=== PATIENT | female | born 1970 | race Caucasian/White ===

== ENCOUNTER 2020-01-29 07:54 | Emergency (ER) | payer OTHER, SELFPAY ==
[2020-01-29 08:07] VITALS: BP 131/77; BP 146/96; PULSE 88; PULSE 94; RESP 18; TEMP 36.8; O2SAT 100; O2SAT 98; BMI 40.2
--- NOTE | 2020-01-29 08:26 | PC.NURSE ---
Pt brought to hospital by ems. reports having hand leg and facial numbness. been ongoing for the last 2 years. provider at bedside
--- NOTE | 2020-01-29 08:33 | ED_ITS ---
HPI - General Adult General Chief complaint: General Medical Stated complaint: hands/feet numbness Time Seen by Provider: 01/29/20 08:16 Source: patient Mode of arrival: EMS Limitations: no limitations History of Present Illness HPI narrative: patient's history of diabetes peripheral neuropathy for last 2 years was seen her primary care doctor and was at [facility] yesterday with the whole workup was done which was negative according to the patient patient was referred to neurologist but she has not seen urologist here came here as she could not sleep last night increased anxiety and numbness in both hands and legs patient denies any pain Onset (ago): year(s) ( 2) Related Data Previous Rx's Medication Instructions Recorded gabapentin [Neurontin] 100 mg PO TID #30 cap 01/29/20 Allergies Allergy/AdvReac Type Severity Reaction Status Date / Time No Known Allergies Allergy Verified 01/29/20 08:37 Review of Systems Review of Systems: REVIEW OF SYSTEMS: Pertinent positives and negatives are stated above in the history. GEN: no fevers, chills, fatigue HEENT: no nasal congestion, sore throat, ear pain NEURO: no headache, dizziness, focal weakness PULM: no cough, shortness of breath CV: no chest pain, palpitations, LE edema ABD: no abdominal pain, nausea, vomiting, diarrhea : no dysuria, urgency, frequency SKIN: no rash ROS otherwise negative x 10 PMFSH Past Medical History Medical History Arthritis Diabetes mellitus type 1 Hypertension Social History Social History Alcohol intake: never Smoking Status: Never smoker Use of substances other than those prescribed or required for medical reasons: No Advance Directives: No Advance Directives Information Provided: No Physical Exam Vital Signs: Vital Signs: Last Vital Signs Temp 98.2 F 01/29/20 08:07 Pulse 94 01/29/20 08:07 Resp 18 01/29/20 08:07 BP 131/77 01/29/20 08:07 Pulse Ox 98 01/29/20 08:07 Body Mass Index 40.2 Appearance: Alert. Oriented X3. No acute distress. obese walking with walker Eyes: Pupils equal, round and reactive to light. ENT: Pharynx normal. Neck: Normal inspection. Neck supple. CVS: Normal heart rate and rhythm. Pulses normal. Respiratory: No respiratory distress. Breath sounds normal. Abdomen: Soft and nontender. Skin: Skin warm and dry. Normal skin color. Normal skin turgor. Extremities: No lower extremity edema. Good range of movement Neuro: Oriented X 3. No motor deficit. decreased sensation to light touch and pinprick in both feet and hand. Reflexes are normal. Course Course Course Narrative: Patient with peripheral neuropathy for last 2 years not on any medication for it likely from diabetes. Will start her on gabapentin advised to follow with neurologist patient had detailed workup done yesterday at [facility] which was negative for any acute metabolic reason and patient was advised to schedule with neurologist Medical Decision Making Lab Data Labs: Lab Results 01/29/20 Range/Units 08:36 POC Glucose 108 (60-115) mg/dL Discharge Plan Discharge Clinical Impression: Peripheral neuropathy Qualifiers: Peripheral neuropathy type: polyneuropathy, unspecified Qualified Code(s): G62.9 - Polyneuropathy, unspecified Patient Disposition: Home, Self-Care Instructions: Diabetic Peripheral Neuropathy (ED) Additional Instructions: your neuropathy is likely from diabetes. Continue your medications and start taking gabapentin for symptomatic treatment and follow-up with your neurologist as scheduled Prescriptions: New gabapentin [Neurontin] 100 mg capsule 100 mg PO TID Qty: 30 RF: 0 Print Language: Vietnamese
[2020-01-29 08:40] LABS: Glucose, Whole Blood 108 mg/dL (60-115)
--- NOTE | 2020-01-29 08:56 | PC.NURSE ---
pt refused medication aware
== END 2020-01-29 09:06 | disposition home or self-care (01) ==
PROVIDERS: Emergency Provider Internal Medicine; PCP Physician Assistant Medical
DX: G62.9 Polyneuropathy, unspecified (principal); Z79.899 Other long term (current) drug therapy
CPT/HCPCS: 82947; 99283

== ENCOUNTER 2020-02-22 20:19 | Emergency (ER) | payer OTHER, SELFPAY ==
[2020-02-22 21:33] VITALS: BP 161/80; PULSE 90; RESP 16; TEMP 36.3; O2SAT 99; BMI 44.2
[2020-02-22 22:16] LABS: Glucose Urine UA NEG (NEG); Leukocyte Esterase Urine NEG (NEG); Nitrite Urine NEG (NEG); Specific Gravity - Urine >= 1.030 (1.005-1.025); Urine Blood 2+ (NEG); Urine Ketones NEG (NEG); Urine Protein NEG (NEG-TRACE)
[2020-02-22 22:35] LABS: Appearance Urine HAZY; Color Urine YELLOW
[2020-02-22 22:51] LABS: Bacteria Urine 1+ /LPF; Squamous Epithelial Cell Urine 2+ /LPF
[2020-02-22 23:11] LABS: Glucose, Whole Blood 144 mg/dL (60-115)
--- NOTE | 2020-02-22 23:45 | ED.FEMALEGU ---
HPI - Female Genitourinary General Chief complaint: Urogenital-Female Stated complaint: UTI Time Seen by Provider: 02/22/20 22:51 Source: patient and [employer] Mode of arrival: ambulatory Limitations: no limitations History of Present Illness HPI Narrative: 49 years old female presented with frequency urination, with burning sensation with urination, for the past 3 days, patient also reported bad odor to the urine, no fever or chills, been having also mild right flank pain. Patient had similar presentations in the past. Related Data Previous Rx's Medication Instructions Recorded gabapentin [Neurontin] 100 mg PO TID #30 cap 01/29/20 Allergies Allergy/AdvReac Type Severity Reaction Status Date / Time No Known Allergies Allergy Verified 02/22/20 21:35 Review of Systems Review of Systems: All other systems are reviewed and are negative Constitutional: Reports as per HPI and Reports no additional constitutional complaints Eyes: Reports as per HPI and Reports no additional eye complaints Reports system reviewed and no additional complaints, except as documented Cardiovascular: Reports as per HPI and Reports no additional cardiovascular complaints Respiratory: Reports as per HPI and Reports no additional respiratory complaints Gastrointestinal: Reports as per HPI and Reports no additional gastrointestinal complaints Genitourinary: Reports no additional female genitourinary complaints Musculoskeletal: Reports no additional musculoskeletal complaints Skin/Breast: Reports system reviewed and no additional complaints, except as docu Psychiatric: Reports no additional psychiatric complaints Endocrine: Reports no additional endocrine complaints Hematologic/Lymphatic: Reports no additional hematologic/lymphatic complaints Allergic/Immunologic: Reports no additional allergic/immunologic complaints Reports system reviewed and no additional complaints, except as documented and Reports Abnormal speech present [facility] Past Medical History Medical History Arthritis Diabetes mellitus type 1 Hypertension Social History Social History Alcohol intake: never Smoking Status: Never smoker Smoked in Last 30 Days: No Use of substances other than those prescribed or required for medical reasons: No Advance Directives: No Advance Directives Information Provided: No Physical Exam Vital Signs: Vital Signs: Last Vital Signs Temp 97.4 F 02/22/20 21:33 Pulse 90 02/22/20 21:33 Resp 16 02/22/20 21:33 BP 161/80 H 02/22/20 21:33 Pulse Ox 99 02/22/20 21:33 Body Mass Index 44.2 Vital signs have been reviewed as normal and appeared to be correct. Blood pressure in the high range l. Heart rate normal. Respiration rate normal. Temperature normal. Oxygen saturation normal. Appearance: Alert. Oriented X3. No acute distress. Head: Normal external exam. Normocephalic. Atraumatic. No Cervantes signs noted. No raccoon eyes noted Eyes: PERRLA. EOMI. Conjunctiva and sclera normal. Eyelids normal. ENT: EAC normal. TM's Normal. Pharynx normal. Uvula midline. Moist mucous membranes. No trismus noted. No drooling noted. No muffled voice noted. Neck: Normal inspection. Neck supple. FROM. No adenopathy. Thyroid Normal. No meningeal signs. No neck mass noted. CVS: Normal heart rate and rhythm. Heart sound normal. No murmurs noted. Pulses normal throughout. Respiratory: No respiratory distress. Painless inspiration. Breath sounds normal. No wheezes/rales/rhonchi noted. Chest nontender. No accessory muscle usage noted or decreased air movement noted. Abdomen: Soft and nontender. Bowel sounds normal in all 4 quadrants. No distention noted. No organomegaly noted. No visible injury noted. Back: No CVA tenderness. Full range of motion noted. Skin: Skin warm and dry. Normal skin color. Normal skin turgor. No rashes/lesions/lacerations noted. Extremities: No lower extremity edema. Extremities exhibit normal range of motion. Extremities nontender. Neuro: Oriented X 3. No motor deficit. No sensory deficit. Reflexes normal. MDM - Female Genitourinary MDM Narrative Medical decision making narrative: Assessment and plan. This is a 49-year-old female presented with dysuria, frequency urination, bad odor smell urine. UA is not reflecting UTI. As discussed with the patient to follow-up with PCP drink plenty of fluid. Lab Data Labs: Lab Results 02/22/20 02/22/20 Range/Units 22:05 23:05 POC Glucose 144 H (60-115) mg/dL Urine Color YELLOW Urine Appearance HAZY Urine pH 6.0 (5.0-8.0) Ur Specific [place] >= 1.030 H (1.005-1.025) Urine Protein NEG (NEG-TRACE) MG/DL Urine Glucose (UA) NEG (NEG) MG/DL Urine Ketones NEG (NEG) MG/DL Urine Blood 2+ H (NEG) Urine Nitrite NEG (NEG) Ur Leukocyte Esterase NEG (NEG) Urine RBC 1-4 (0) /HPF Urine WBC 1-4 (0-4) /HPF Ur Squamous Epith Cells 2+ /LPF Urine Bacteria 1+ /LPF Granular Casts 1-4 /LPF Discharge Plan Discharge Clinical Impression: Dysuria Patient Disposition: Home, Self-Care Instructions: Dysuria (ED) Prescriptions: No Action gabapentin [Neurontin] 100 mg capsule 100 mg PO TID Qty: 30 RF: 0 Referrals: Physician,Unknown [Primary Care Provider] - 2 days
== END 2020-02-23 00:13 | disposition home or self-care (01) ==
PROVIDERS: Emergency Provider Emergency Medicine
DX: R30.0 Dysuria (principal); E11.9 Type 2 diabetes mellitus without complications; I10 Essential (primary) hypertension
CPT/HCPCS: 81001; 82947; 99284